=== PATIENT | female | born 1960 ===

== ENCOUNTER 2019-12-31 19:45 | Inpatient (IN) | payer MEDICAID ==
[~2019-12-31] VITALS: Ht 160 cm; Wt 135.0 kg
[~2019-12-31 19:45] MED LIST: CEFD300C37 PO; GABA300C10 PO; INSU100C5 SQ-INSULIN; INSU100I28 SQ-INSULIN; INSU100I29 SQ; INSU100V5; LACT1CAP24 PO; METH500T7; OXYB10TA26 PO
--- NOTE | 2019-12-31 20:02 | NUR ---
NEURO CALLED @ 1955 AND CALL RETURNED @ 1999
[2019-12-31 20:24] LABS: BASOPHILS % (AUTO) 1 % (0-1); EOSINOPHILS % (AUTO) 2 % (1-7); LYMPHOCYTES % (AUTO) 24 % (22-44); MEAN CORPUSCULAR HEMOGLOBIN 26.4 pg (27.0-34.8); MEAN CORPUSCULAR HGB CONC 32.3 g/dL (32.4-35.8); MONOCYTES % (AUTO) 8 % (2-9); NEUTROPHILS % (AUTO) 66 % (42-75); PLATELET COUNT 348 x10^3/uL (130-400); RED BLOOD COUNT 4.46 x10^6/uL (3.82-5.3)
[2019-12-31 20:26] LABS: MD NO
[2019-12-31 20:29] LABS: INTERNATIONAL NORMALIZED RATIO 0.96 (0.93-1.1); PROTHROMBIN TIME 10.2 Seconds (9.6-11.5)
[2019-12-31] MEDS ORDERED: OMNIPAQUE 350 MG/ML, 100ML BOTTLE ONE (20:32)
--- NOTE | 2019-12-31 20:37 | NUR ---
PT HAS SWELLING TO RIGHT EYE WITH REDNESS TO THE EYELID. PT HAS EQUAL PUSHES AND PULLS. PT STATED SHE HAS NEROPHATHY AND USUALY HAS DECREASED SENSORY IN FEET BUT SHE FEELS THE RIGHT FOOT IS WORSE.
[2019-12-31] MEDS ORDERED: DIPHENHYDRAMINE 50 MG/ML, 1ML ONE (20:54)
[2019-12-31] MEDS ORDERED: methylPREDNISolone SOD SUCC 125 MG/2 ML ONE (20:54)
[2019-12-31] MEDS ORDERED: methylPREDNISolone SOD SUCC 125 MG/2 ML IVPush ONE (21:00)
[2019-12-31] MEDS ORDERED: DIPHENHYDRAMINE 50 MG/ML, 1ML IV ONE (21:00)
[2019-12-31] MEDS ORDERED: ESOMEPRAZOLE (21:13)
[2019-12-31] MEDS ORDERED: MOXIFLOXACIN (21:13)
[2019-12-31] MEDS ORDERED: TIMOLOL (21:13)
[2019-12-31] MEDS ORDERED: BISACODYL (21:13)
[2019-12-31] MEDS ORDERED: BUMETANIDE (21:13)
[2019-12-31] MEDS ORDERED: XARELTO (21:13)
[2019-12-31] MEDS ORDERED: LISINOPRIL (21:13)
[2019-12-31] MEDS ORDERED: ATORVASTATIN (21:13)
[2019-12-31] MEDS ORDERED: POTASSIUM (21:13)
[2019-12-31] MEDS ORDERED: CARVEDILOL (21:13)
[2019-12-31 21:50] LABS: TROPONIN I < 0.015 ng/mL (0.000-0.045)
--- NOTE | 2019-12-31 22:19 | NUR ---
RECEIVED BS REPORT FROM HUNG GILL TO ASSUME CARE OF PT. AT THIS TIME. PT. RESTING ON GURNEY WITH NO ACUTE DISTRSS NOTED. ALL MONITORS IN PLACE. FAMILY AT BS FOR SUPPORT. AWAITNG BED PLACEMENT.
[2019-12-31] MEDS ORDERED: GABA300C PO (22:44)
[2019-12-31] MEDS ORDERED: ATOR40TA78 PO (22:44)
[2019-12-31] MEDS ORDERED: BUME1TAB21 PO (22:44)
[2019-12-31] MEDS ORDERED: LISI-167 PO (22:44)
[2019-12-31] MEDS ORDERED: CIPR7.5D7 OP (22:44)
[2019-12-31] MEDS ORDERED: BISA5TAB5 PO (22:44)
[2019-12-31] MEDS ORDERED: POTA20TA14 PO (22:44)
[2019-12-31] MEDS ORDERED: CARV6.252 PO (22:44)
--- NOTE | 2019-12-31 22:45 | NUR ---
MED REC COMPLETED. PT. A&O X 4 AND RESPONDS APPROPRIATELY. DENIES NEEDS AT THIS TIME. VS UPDATED AND STABLE.
--- NOTE | 2019-12-31 23:01 | NUR ---
REPORT TO HUNG THOMAS. FLOOR READY FOR PT. TRANSPORT.
[2019-12-31 23:20] VITALS: BP 158/90
[2019-12-31 23:33] VITALS: BP 158/90
[2020-01-01] MEDS ORDERED: GUAIFENESIN/DM 200-20MG, 10ML UDC PO PRN (01:00)
[2020-01-01] MEDS ORDERED: DOCUSATE 100 MG CAPSULE PO PRN (01:00)
[2020-01-01] MEDS ORDERED: METHOCARBAMOL 500 MG TABLET PO PRN (01:00)
[2020-01-01] MEDS ORDERED: morphine SULFATE 10 MG/ML, 1ML IVPush PRN (01:00)
[2020-01-01] MEDS ORDERED: ENALAPRILAT 1.25 MG/ML, 2ML IVPush PRN (01:00)
[2020-01-01] MEDS ORDERED: TEMAZEPAM 15 MG CAPSULE PO PRN (01:00)
[2020-01-01] MEDS ORDERED: DIPHENHYDRAMINE 50 MG CAPSULE PO ONE ×2 (01:00)
[2020-01-01] MEDS ORDERED: ACETAMINOPHEN 325 MG TABLET PO PRN (01:00)
[2020-01-01] MEDS: BISACODYL 5 MG EC TABLET PO SCH ×3 (01:00→20:22)
[2020-01-01] MEDS ORDERED: GABAPENTIN 300 MG CAPSULE PO SCH (01:00)
[2020-01-01] MEDS ORDERED: ONDANSETRON 2MG/ML, 2ML IVPush PRN (01:00)
[2020-01-01] MEDS: ATORVASTATIN 40 MG TABLET PO SCH ×2 (01:54→20:22)
[2020-01-01] MEDS: ENOXAPARIN 40 MG/0.4 ML SQ SCH (01:56)
[2020-01-01 05:16] LABS: ANION GAP 6 mmol/L (5-15); CALCIUM 7.7 mg/dL (8.5-10.1); CHLORIDE 105 mmol/L (98-107)
[2020-01-01 05:18] LABS: CREATININE 0.99 mg/dL (0.55-1.02)
[2020-01-01] MEDS: HYDROcodone/APAP 5/325 TABLET PO PRN ×3 (06:39→20:25)
[2020-01-01 06:40] VITALS: BP 152/84
[2020-01-01] MEDS ORDERED: FAMOTIDINE 40 MG TABLET ONE (07:51)
[2020-01-01] MEDS: FUROSEMIDE 40 MG/4 ML IV SCH ×2 (08:01→16:07)
[2020-01-01] MEDS: POTASSIUM CHLORIDE 20 MEQ TAB.ER.PRT PO SCH ×2 (08:02→16:07)
[2020-01-01] MEDS: LISINOPRIL 10 MG TABLET PO SCH (08:02)
[2020-01-01] MEDS: GABAPENTIN 300 MG CAPSULE PO SCH ×2 (08:02→20:22)
[2020-01-01] MEDS: FAMOTIDINE 20 MG TABLET PO SCH ×2 (08:03→21:36)
[2020-01-01] MEDS: CARVEDILOL 6.25 MG TABLET PO SCH ×2 (08:03→20:22)
[2020-01-01] MEDS ORDERED: CIPROFLOXACIN DEXAMETHASONE EAR SUSP 7.5ML RIGHT EAR SCH (09:00)
[2020-01-01] MEDS: INSULIN REGULAR 100 UNITS/ML, 3ML VIAL SQ-INSULIN SCH ×4 (09:27→20:00)
[2020-01-01 12:15] VITALS: BP 135/78
[2020-01-01 20:05] VITALS: BP 150/87
[2020-01-01] MEDS: CIPROFLOXACIN OPHTH SOLN 0.3%, 5ML RIGHTEYE SCH (20:23)
[2020-01-01] MEDS ORDERED: CIPROFLOXACIN DEXAMETHASONE EAR SUSP 7.5ML OTIC SCH (21:00)
[2020-01-02 00:17] VITALS: BP 133/78
[2020-01-02] MEDS: ENOXAPARIN 40 MG/0.4 ML SQ SCH (00:36)
[2020-01-02 05:44] LABS: BASOPHILS % (AUTO) 1 % (0-1); EOSINOPHILS % (AUTO) 1 % (1-7); LYMPHOCYTES % (AUTO) 24 % (22-44); MEAN CORPUSCULAR HEMOGLOBIN 27.2 pg (27.0-34.8); MEAN CORPUSCULAR HGB CONC 32.8 g/dL (32.4-35.8); MEAN PLATELET VOLUME 8.3 fL (7.4-10.4); MONOCYTES % (AUTO) 9 % (2-9); NEUTROPHILS % (AUTO) 66 % (42-75); PLATELET COUNT 297 x10^3/uL (130-400); RED BLOOD COUNT 3.97 x10^6/uL (3.82-5.3); RED CELL DISTRIBUTION WIDTH 15.2 % (9.6-15.2)
[2020-01-02 05:55] LABS: ANION GAP 6 mmol/L (5-15); CALCIUM 7.9 mg/dL (8.5-10.1); CHLORIDE 105 mmol/L (98-107); CREATININE 1.39 mg/dL (0.55-1.02)
[2020-01-02 05:59] LABS: MD NO
[2020-01-02] MEDS ORDERED: FAMOTIDINE 40 MG TABLET ONE (08:32)
[2020-01-02 08:34] VITALS: BP 146/83
[2020-01-02] MEDS: FAMOTIDINE 20 MG TABLET PO SCH ×2 (08:49→20:32)
[2020-01-02] MEDS: POTASSIUM CHLORIDE 20 MEQ TAB.ER.PRT PO SCH ×2 (08:50→16:33)
[2020-01-02] MEDS: CARVEDILOL 6.25 MG TABLET PO SCH ×2 (08:50→20:31)
[2020-01-02] MEDS: BISACODYL 5 MG EC TABLET PO SCH ×2 (08:50→20:30)
[2020-01-02] MEDS: LISINOPRIL 10 MG TABLET PO SCH (08:50)
[2020-01-02] MEDS: GABAPENTIN 300 MG CAPSULE PO SCH ×2 (08:53→20:30)
[2020-01-02] MEDS: FUROSEMIDE 40 MG/4 ML IV SCH (08:53)
[2020-01-02] MEDS: CIPROFLOXACIN OPHTH SOLN 0.3%, 5ML RIGHTEYE SCH ×2 (08:54→20:33)
[2020-01-02] MEDS: INSULIN REGULAR 100 UNITS/ML, 3ML VIAL SQ-INSULIN SCH ×4 (08:54→20:30)
[2020-01-02] MEDS ORDERED: SPIRONOLACTONE 25 MG TABLET PO SCH (09:30)
[2020-01-02 13:10] VITALS: BP 129/80
[2020-01-02] MEDS ORDERED: FUROSEMIDE 40 MG TABLET PO SCH (17:00)
[2020-01-02 18:22] VITALS: BP 124/83
[2020-01-02] MEDS: ATORVASTATIN 40 MG TABLET PO SCH (20:30)
[2020-01-03] MEDS: ENOXAPARIN 40 MG/0.4 ML SQ SCH (01:57)
[2020-01-03 02:00] VITALS: BP 131/77
[2020-01-03] MEDS: HYDROcodone/APAP 5/325 TABLET PO PRN (02:16)
[2020-01-03 04:50] LABS: ANION GAP 4 mmol/L (5-15); CALCIUM 7.8 mg/dL (8.5-10.1); CHLORIDE 107 mmol/L (98-107); CREATININE 1.72 mg/dL (0.55-1.02)
[2020-01-03 07:48] VITALS: BP 142/89
[2020-01-03] MEDS ORDERED: FAMOTIDINE 40 MG TABLET ONE (08:58)
[2020-01-03] MEDS: BISACODYL 5 MG EC TABLET PO SCH ×2 (09:08→19:47)
[2020-01-03] MEDS: INSULIN REGULAR 100 UNITS/ML, 3ML VIAL SQ-INSULIN SCH ×4 (09:08→22:01)
[2020-01-03] MEDS: GABAPENTIN 300 MG CAPSULE PO SCH ×2 (09:08→22:00)
[2020-01-03] MEDS: CIPROFLOXACIN OPHTH SOLN 0.3%, 5ML RIGHTEYE SCH ×2 (09:08→22:00)
[2020-01-03] MEDS: CARVEDILOL 6.25 MG TABLET PO SCH ×2 (09:08→22:00)
[2020-01-03] MEDS: SODIUM CHLORIDE 0.9% 1,000 ML IV SCH (09:09)
[2020-01-03] MEDS ORDERED: PHARMACY MAY ADJ FOR RENAL FX MC PRN (09:30)
[2020-01-03 14:10] VITALS: BP 122/66
[2020-01-03] MEDS ORDERED: ENOXAPARIN 30 MG/0.3 ML SQ SCH (17:00)
[2020-01-03 19:55] VITALS: BP 152/88
[2020-01-03] MEDS: ATORVASTATIN 40 MG TABLET PO SCH (22:00)
[2020-01-04 01:00] VITALS: BP 140/78
[2020-01-04] MEDS: HYDROcodone/APAP 5/325 TABLET PO PRN (01:10)
[2020-01-04] MEDS: ENOXAPARIN 40 MG/0.4 ML SQ SCH (01:11)
[2020-01-04] MEDS: SODIUM CHLORIDE 0.9% 1,000 ML IV SCH ×2 (01:12→11:31)
[2020-01-04] MEDS: BISACODYL 5 MG EC TABLET PO SCH ×2 (07:10→21:16)
[2020-01-04] MEDS: INSULIN REGULAR 100 UNITS/ML, 3ML VIAL SQ-INSULIN SCH ×4 (07:23→21:00)
[2020-01-04 07:59] VITALS: BP 144/72
[2020-01-04] MEDS: GABAPENTIN 300 MG CAPSULE PO SCH ×2 (08:10→21:16)
[2020-01-04] MEDS: CIPROFLOXACIN OPHTH SOLN 0.3%, 5ML RIGHTEYE SCH ×2 (08:10→21:17)
[2020-01-04] MEDS: CARVEDILOL 6.25 MG TABLET PO SCH ×2 (08:10→21:16)
[2020-01-04 09:15] LABS: ANION GAP 4 mmol/L (5-15); CHLORIDE 108 mmol/L (98-107)
[2020-01-04 13:18] VITALS: BP 143/73
[2020-01-04 19:04] VITALS: BP 151/82
[2020-01-04] MEDS ORDERED: LISINOPRIL 5 MG TABLET PO SCH (21:00)
[2020-01-04] MEDS: ATORVASTATIN 40 MG TABLET PO SCH (21:15)
[2020-01-04] MEDS: BUMETANIDE 1 MG TABLET PO SCH (21:16)
[2020-01-05 01:01] VITALS: BP 130/80
[2020-01-05] MEDS: ENOXAPARIN 40 MG/0.4 ML SQ SCH (02:00)
[2020-01-05 02:46] VITALS: BP 136/72
[2020-01-05 05:58] LABS: ANION GAP 2 mmol/L (5-15); CALCIUM 7.7 mg/dL (8.5-10.1); CHLORIDE 107 mmol/L (98-107)
[2020-01-05 05:59] LABS: CREATININE 1.15 mg/dL (0.55-1.02)
[2020-01-05 07:10] VITALS: BP 119/74
[2020-01-05] MEDS: INSULIN REGULAR 100 UNITS/ML, 3ML VIAL SQ-INSULIN SCH ×2 (08:12→13:24)
[2020-01-05] MEDS: GABAPENTIN 300 MG CAPSULE PO SCH (08:13)
[2020-01-05] MEDS: BISACODYL 5 MG EC TABLET PO SCH (08:13)
[2020-01-05] MEDS: CARVEDILOL 6.25 MG TABLET PO SCH (08:13)
[2020-01-05] MEDS: BUMETANIDE 1 MG TABLET PO SCH (08:17)
[2020-01-05] MEDS: CIPROFLOXACIN OPHTH SOLN 0.3%, 5ML RIGHTEYE SCH (08:17)
[2020-01-05] MEDS ORDERED: LISINOPRIL 10 MG TABLET PO SCH (09:00)
[2020-01-05 13:40] VITALS: BP 119/78
== END 2020-01-05 16:53 | disposition home or self-care (01) | DRG 194 ==
LOC: ED 20:39 → EDIP 22:08 → UNDOADMIN 22:08 → EDIP 23:23 → 5SO 23:23 → EDIP 01-01 00:43
PROVIDERS: ADMIT Internal Medicine; ATTEND Internal Medicine
DX: I50.23 Acute on chronic systolic (congestive) heart failure (principal); N17.0 Acute kidney failure with tubular necrosis; I25.10 Atherosclerotic heart disease of native coronary artery without angina pectoris; E78.5 Hyperlipidemia, unspecified; E66.01 Morbid (severe) obesity due to excess calories; E11.51 Type 2 diabetes mellitus with diabetic peripheral angiopathy without gangrene; E11.42 Type 2 diabetes mellitus with diabetic polyneuropathy; E11.65 Type 2 diabetes mellitus with hyperglycemia; E87.6 Hypokalemia; I65.23 Occlusion and stenosis of bilateral carotid arteries; E46 Unspecified protein-calorie malnutrition; R29.810 Facial weakness; T50.1X5A Adverse effect of loop [high-ceiling] diuretics, initial encounter; I25.2 Old myocardial infarction; Z68.43 Body mass index [BMI] 50.0-59.9, adult
CPT/HCPCS: 36415; 70450; 70496; 70498; 70551; 71045; 76770; 80047; 80048; 82962; 83036; 83735; 83880; 84100; 84484; 85025; 85610; 85730; 93005; 93970; 96374; 96375; 99285; C8929; G0378; J1650; J1815; J1940; Q9957; Q9967; J1200; J2930; J7030; J7512